=== PATIENT | female | born 1960 | race Caucasian/White ===

== ENCOUNTER → 2023-06-07 10:57 | Outpatient (REF) | payer MEDICARE, SELFPAY | LOC: HWWDC 10:57 | PROVIDERS: ATTENDING PHYSICIAN Internal Medicine | DX: Z12.31 Encounter for screening mammogram for malignant neoplasm of breast (principal) | CPT/HCPCS: 77063; 77067 ==

== ENCOUNTER → 2023-10-31 14:50 | Outpatient (REF) | payer MEDICARE, SELFPAY | LOC: HWRAD 14:50 | PROVIDERS: ATTENDING PHYSICIAN Internal Medicine | DX: R06.02 Shortness of breath (principal) | CPT/HCPCS: 71046 ==

== ENCOUNTER → 2023-12-21 14:09 | Outpatient (REF) | payer MEDICARE, SELFPAY | LOC: HWRAD 14:09 | PROVIDERS: ATTENDING PHYSICIAN Internal Medicine | DX: R05.1 Acute cough (principal) | CPT/HCPCS: 71046 ==

== ENCOUNTER → 2024-03-05 09:04 | Day surgery (SDC) | payer MEDICARE, SELFPAY | LOC: SDSPAT 09:04 | PROVIDERS: ATTENDING PHYSICIAN Surgery; FAMILY PHYSICIAN Internal Medicine | DX: Z01.810 Encounter for preprocedural cardiovascular examination (principal); Z01.812 Encounter for preprocedural laboratory examination; R00.1 Bradycardia, unspecified | CPT/HCPCS: 93005; 36415 ==

== ENCOUNTER 2024-03-19 06:04 | Day surgery (SDC) | payer MEDICARE, SELFPAY ==
[2024-03-19] VITALS (7 sets, daily range): BP systolic 107–162; BP diastolic 48–66; BMI 19.3
[2024-03-19] MEDS: TYLENOL 1000 MG PO (06:16)
[2024-03-19] MEDS: NORMOSOL-R/PLASMALYTE-A 1000 IV (06:23)
--- NOTE | 2024-03-19 06:27 | HP.FOC2 ---
Focused History & Physical
Chief Complaint
HPI:
Chief Complaint: Left inguinal hernia
HPI / Indication for Planned Procedure: 64-year-old female with history of intermittent swelling in the left inguinal region. Awareness of the hernia being present but no significant pain. No symptoms suggestive of intermittent incarceration or
obstruction. Recent outpatient surgical evaluation confirmed the presence of a soft, reducible left inguinal hernia. Patient presents today for scheduled operative correction.
Relevant Past Medical History: Other (History of Lyme's disease, mast cell activation syndrome, urticaria, osteoporosis)
Relevant Social History: Negative
Relevant Family History: Negative
Relevant Past Surgical History: Positive for (Left breast biopsy)
Review of Systems
Review of Pertinent Systems: All Systems Negative
Medication
See Medication form for detailed medications: Yes
Medication List (including Herbals & OTC):
Core Minerals 2 dose PO HS 03/13/24
Histaquel 375 mg PO HS 03/13/24
Histaquel 750 mg PO DAILY 03/13/24
Magnesium Powder 400 mg PO HS 03/13/24
Methylcobalamin 500 mcg PO DAILY 03/13/24
Myc-P Tincture 40 drp PO BID lyme 03/13/24
Myco Derrick 1 dose PO DAILY 03/13/24
Tumeric 400 mg PO DAILY 03/13/24
ascorbic acid (vitamin C) 100 mg tablet (Vitamin C) 100 mg PO BID 03/13/24
calcium carbonate 600 mg PO DAILY 03/13/24
calcium glucarate 500 mg capsule 2 tab-cap PO BID 03/13/24
coenzyme Q10 100 mg capsule (CoQ-10) 100 mg PO DAILY 03/13/24
hydroxychloroquine 100 mg tablet 100 mg PO DAILY 03/13/24
lactobacillus combination no.4 3 billion cell capsule (Probiotic) 3,000 mmu cells PO DAILY 03/13/24
multivitamin 1 tab PO DAILY 03/13/24
prasterone (dhea) 25 mg capsule 25 mg PO DAILY 03/13/24
psyllium husk 0.4 gram capsule 0.4 g PO BID 03/13/24
quercetin 500 mg capsule 500 mg PO DAILY 03/13/24
vitamin [id number] B1 1,000 mcg-100 mg/mL injection solution 1 ml IM 03/13/24
vitamin D3 1,250 mcg (50,000 unit)-vitamin K2 200 mcg capsule 2,000 cap PO DAILY 03/13/24
Medications Reviewed: Yes
Allergies and Reactions
Patient has Allergies: Yes
Noted Allergies and Reactions:
Allergy/AdvReac Type Severity Reaction Status Date / Time
Sulfa (Sulfonamide Allergy Rash Verified 03/19/24 06:08
Antibiotics)
Pertinent Physical Exam
All Other Systems: Negative
Head/Neck: Normal
Lungs: Normal
Heart: Normal
Abdomen: Other (Reducible left inguinal hernia)
Extremities: Normal
Neurological: Normal
Diagnosis / Assessment
64-year-old female presenting for scheduled operative correction left inguinal hernia
Plan / Procedure
Laparoscopic repair left inguinal hernia with mesh
Anesthesia/Sedation to be done by Anesthesia Provider: Yes
--- NOTE | 2024-03-19 06:29 | W.SUR.PREOP ---
Pre-Operative Surgical Note
-
I have examined this patient prior to the performance of the scheduled procedure.
The patient's condition is unchanged from the time of the current History and
Physical and the patient is able to undergo the scheduled procedure.
--- NOTE | 2024-03-19 07:39 | W.IMMPOSTOP ---
Addendum entered and electronically signed by Duong Hancock MD 03/19/24 07:59:
#[id number]
Original Note:
Surgical Immed Post Op Note
-
Primary Surgeon: Karissa
Assisting Surgeon: Amira ALAMO
Pre-op Diagnosis: LIH
Post-op Diagnosis: LIH - indirect
Procedure Performed: Lap TEP LIH repair with mesh
Anesthesia Type: GETA + 0.25% Marcaine
Specimen / Cultures: none
Estimated Blood Loss: 4mL
Complications: none immediate
Operative Findings: Left indirect inguinal hernia. Normal direct and femoral spaces. No peritoneal entry. 3D max large mid weight mesh repair
== END 2024-03-19 09:15 | disposition home or self-care (01) ==
LOC: SDS 06:04
PROVIDERS: ATTENDING PHYSICIAN Surgery; FAMILY PHYSICIAN Internal Medicine
DX: K40.90 Unilateral inguinal hernia, without obstruction or gangrene, not specified as recurrent (principal)
CPT/HCPCS: 49650; C1781

== ENCOUNTER → 2024-06-07 13:01 | Outpatient (REF) | payer MEDICARE, SELFPAY | LOC: HWWDC 13:01 | PROVIDERS: ATTENDING PHYSICIAN Internal Medicine; REFERRING PHYSICIAN Obstetrics & Gynecology | DX: Z12.31 Encounter for screening mammogram for malignant neoplasm of breast (principal) | CPT/HCPCS: 77063; 77067 ==